=== PATIENT | male | born 1945 | race Caucasian/White ===

== ENCOUNTER 2016-07-14 06:42 | Day surgery (SDC) | payer BC ==
--- NOTE | ~2016-07-14 | EGD ---
EGD REPORT [facility] [address] [address] NAME: RIKY LUDWIG : [birth year] STATUS : REG [facility] [place] PAT#: [id number] AGE: 71 ADM/REG DATE : 07/14/16 MR#: [id number] REPORT SERV DATE: 07/14/16 DICTATED BY: DARRYL TAYLOR DATE: 07/14/16 REPORT STATUS : Draft TRANSCRIBED BY: [facility] DATE: 07/14/16 Endoscopy Center Patient Name: Riky Ludwig Date of : 1945 Attending MD: DARRYL TAYLOR MD Procedure Date No Time: 07/14/2016 Procedure: Upper GI endoscopy Indications: Dyspepsia, Dysphagia Referring MD: CARMELA Barber CLOSE Medicines: Propofol per Anesthesia Complications: No immediate complications. Procedure: Pre-Anesthesia Assessment: - ASA Grade Assessment: III - A patient with severe systemic disease. After obtaining informed consent, the endoscope was passed under direct vision. Throughout the procedure, the patient's blood pressure, pulse, and oxygen saturations were monitored continuously. The GIF [id number] was introduced through the mouth, and advanced to the second part of duodenum. The upper GI endoscopy was accomplished without difficulty. The patient tolerated the procedure well. Findings: The examined esophagus was normal. Diffuse moderate inflammation characterized by erosions, erythema and friability was found in the stomach. The examined duodenum was normal. Impression: - Normal esophagus. - Chronic gastritis. - Normal examined duodenum. Recommendation: - Discharge patient to home (ambulatory). Procedure Code(s): --- Professional --- 17599, Esophagogastroduodenoscopy, flexible, transoral; diagnostic, including collection of specimen(s) by brushing or washing, when performed (separate procedure) Diagnosis Code(s): --- Professional --- K29.50, Unspecified chronic gastritis without bleeding K30, Functional dyspepsia R13.10, Dysphagia, unspecified EGD REPORT [facility] [address] [facility] [place] [address] NAME: RIKY LUDWIG : [birth year] STATUS : [place] [facility] [place] PAT#: [id number] AGE: 71 ADM/REG DATE : 07/14/16 MR#: [id number] REPORT SERV DATE: 07/14/16 DICTATED BY: DARRYL TAYLOR. DATE: 07/14/16 REPORT STATUS : Draft TRANSCRIBED BY: [employer] DATE: 07/14/16 CPT copyright 2013 [employer]. All rights reserved. The codes documented in this report are preliminary and upon outpatient admitting clerk review may be revised to meet current compliance requirements. Darryl Taylor MD DARRYL TAYLOR MD 07/14/2016 8:02 AM This report has been signed electronically. Number of Addenda: 0 Note Initiated On: 07/14/2016 7:52 AM Scope Withdrawal Time 0 hours 0 minutes 0 seconds [address] [facility] [place] [address]
--- NOTE | ~2016-07-14 | EGD ---
EGD REPORT [facility] [address] [address] NAME: RIKY LUDWIG : [birth year] STATUS : REG [facility] [place] PAT#: [id number] AGE: 71 ADM/REG DATE : 07/14/16 MR#: [id number] REPORT SERV DATE: 07/14/16 DICTATED BY: DARRYL TAYLOR DATE: 07/14/16 REPORT STATUS : Draft [facility]: [facility] DATE: 07/14/16 Endoscopy Center Patient Name: Riky Ludwig Date of : 1945 Attending MD: DARRYL TAYLOR MD Procedure Date No Time: 07/14/2016 Procedure: Colonoscopy Indications: Constipation Referring MD: CARMELA Barber CLOSE Medicines: Propofol per Anesthesia Complications: No immediate complications. Procedure: Pre-Anesthesia Assessment: - ASA Grade Assessment: III - A patient with severe systemic disease. After I obtained informed consent, the scope was passed under direct vision. Throughout the procedure, the patient's blood pressure, pulse, and oxygen saturations were monitored continuously. The PCF [id number] was introduced through the anus and advanced to the cecum, identified by appendiceal orifice and ileocecal valve. The colonoscopy was performed without difficulty. The patient tolerated the procedure well. The quality of the bowel preparation was good. Findings: The perianal and digital rectal examinations were normal. A sessile polyp was found in the transverse colon. The polyp was 10 mm in size. The polyp was removed with a hot snare. Resection and retrieval were complete. A sessile polyp was found in the descending colon. The polyp was 5 mm in size. The polyp was removed with a hot snare. Resection and retrieval were complete. Multiple medium-mouthed diverticula were found in the sigmoid colon, in the descending colon and at the hepatic flexure. Internal hemorrhoids were found during retroflexion and were Grade I (internal hemorrhoids that do not prolapse). The rest of the colon was normal. Impression: - One 10 mm polyp in the transverse colon. Resected and retrieved. - One 5 mm polyp in the descending colon. Resected and retrieved. - Diverticulosis in the sigmoid colon, in the descending colon and at the hepatic flexure. - Internal hemorrhoids. EGD REPORT [address] [address] NAME: RIKY LUDWIG : [birth year] STATUS : REG [facility] [place] PAT#: [id number] AGE: 71 ADM/REG DATE : 07/14/16 MR#: [id number] REPORT SERV DATE: 07/14/16 DICTATED BY: DARRYL TAYLOR DATE: 07/14/16 REPORT STATUS : Draft TRANSCRIBED BY: [employer] DATE: 07/14/16 Recommendation: - Discharge patient to home (ambulatory). - Repeat colonoscopy in 5 years for surveillance. - Return to my office in 3 weeks. Procedure Code(s): --- Professional --- 06414, Colonoscopy, flexible, proximal to splenic flexure; with removal of tumor(s), polyp(s), or other lesion(s) by snare technique Diagnosis Code(s): --- Professional --- D12.4, Benign neoplasm of descending colon D12.3, Benign neoplasm of transverse colon K64.0, First degree hemorrhoids K57.30, Diverticulosis of large intestine without perforation or abscess without bleeding K59.00, Constipation, unspecified CPT copyright 2013 [employer]. All rights reserved. The codes documented in this report are preliminary and upon medical billing coder review may be revised to meet current compliance requirements. Darryl Taylor MD DARRYL TAYLOR MD 07/14/2016 8:28 AM This report has been signed electronically. Number of Addenda: 0 Note Initiated On: 07/14/2016 7:39 AM Scope Withdrawal Time 0 hours 11 minutes 55 seconds [address] [place] [id number]
[~2016-07-14 06:42] MED LIST: ALLEGRA180 PO; ASAB PO; COREG12 PO; FISH-EPA1000 MG PO; FLOMAX4 PO; LEVOTHYROXIN150 MCG PO; MAX25 PO; MULTIPLE VIT PO; NEXIUM40 PO; RED YEAS1 PO; SINGULAIR1 PO
== END 2016-07-14 23:59 | disposition home health service (06) ==
LOC: DMU 06:42
PROVIDERS: Internal Medicine Gastroenterology
PROC: 0DBM8ZZ Excision of Descending Colon, Via Natural or Artificial Opening Endoscopic (ICD-10-PCS; 2016-07-14)
PROC: 0DJ08ZZ Inspection of Upper Intestinal Tract, Via Natural or Artificial Opening Endoscopic (ICD-10-PCS; principal; 2016-07-14 09:30)
PROC: 0DBL8ZZ Excision of Transverse Colon, Via Natural or Artificial Opening Endoscopic (ICD-10-PCS; 2016-07-14 09:30)
DX: D12.4 Benign neoplasm of descending colon (principal); D12.3 Benign neoplasm of transverse colon; K29.50 Unspecified chronic gastritis without bleeding; K57.30 Diverticulosis of large intestine without perforation or abscess without bleeding; K64.0 First degree hemorrhoids; I48.91 Unspecified atrial fibrillation; I25.2 Old myocardial infarction; K21.9 Gastro-esophageal reflux disease without esophagitis; E03.9 Hypothyroidism, unspecified; E11.9 Type 2 diabetes mellitus without complications; Z88.2 Allergy status to sulfonamides; Z79.82 Long term (current) use of aspirin; Z79.899 Other long term (current) drug therapy; Z90.49 Acquired absence of other specified parts of digestive tract; Z86.010 Personal history of colon polyps; Z98.890 Other specified postprocedural states
CPT/HCPCS: 82962; 88305